=== PATIENT | male | born 1935 | race Caucasian/White ===

== ENCOUNTER 2017-05-26 19:29 | Inpatient (IN) | payer MEDICARE, MEDICAID ==
[~2017-05-26] VITALS: Ht 165.1 cm; Wt 70.3 kg
--- NOTE | 2017-05-26 19:50 | NUR ---
BRUCE FROM [facility] IN [place] FOR MEDICAL/PSYCH CLEARANCE. PER EMS PT WAS BEING AGITATED AND AT RISK FOR AWOL. PT IS AAOX3/CONFUSED. PT STATES THE YEAR IS 2016 AND OBAMA IS THE PRESIDENT. SKIN WNL. VSS. NO S/S OF ACUTE DISTRESS NOTED. PT SAFETY AND COMOFRT MEASURES IN PLACE. AWAITING MD FOR EVAL.
--- NOTE | 2017-05-26 19:56 | NUR ---
PHLEBOTOMY BEDSIDE FOR BLOOD DRAW.
--- NOTE | 2017-05-26 20:02 | NUR ---
PINKY BEDSIDE FOR PSYCH EVAL.
[2017-05-26 20:04] LABS: BASOPHILS # (AUTO) 0.1 /CMM (0.0-0.2); BASOPHILS % (AUTO) 1.1 % (0.0-2.0); EOSINOPHILS % (AUTO) 2.4 % (0.0-6.0); HEMATOCRIT 35 % (39-51); HEMOGLOBIN 11.8 g/dL (13.5-17.5); LYMPHOCYTES # (AUTO) 1.5 /CMM (0.8-4.8); LYMPHOCYTES % (AUTO) 18.3 % (20.0-44.0); MEAN CORPUSCULAR HGB CONC 34 g/dl (31.0-36.0); MEAN CORPUSCULAR VOLUME 88 fL (80-96); MONOCYTES # (AUTO) 0.5 /CMM (0.1-1.30); MONOCYTES % (AUTO) 5.6 % (2.0-12.0); NEUTROPHILS # (AUTO) 6.1 /CMM (1.8-8.9); NEUTROPHILS % (AUTO) 72.6 % (43.0-81.0); PLATELET COUNT (AUTO) 282 /CMM (150-450); RDW COEFFICIENT OF VARIATION 13.2 (11.5-15.0); RED BLOOD CELL COUNT(AUTO) 3.94 MIL/uL (4.5-6.0); WHITE BLOOD COUNT (AUTO) 8.4 K/uL (4.3-11.0)
[2017-05-26 20:19] LABS: ALANINE AMINOTRANSFERASE 26 U/L (12-78); ALCOHOL, BLOOD < 3 mg/dL (0-0); ALKALINE PHOSPHATASE 63 U/L (46-116); ASPARTATE AMINOTRANSFERASE 17 U/L (15-37); BILIRUBIN,DIRECT 0.1 mg/dL (0.0-0.2); BILIRUBIN,TOTAL 0.1 mg/dL (0.2-1.0); CALCIUM, SERUM 8.8 mg/dL (8.5-10.1); CARBON DIOXIDE 25 mmol/L (21-32); CHLORIDE 107 mmol/L (98-107); CREATININE 0.9 mg/dL (0.6-1.3); GLUCOSE 115 mg/dL (74-106); POTASSIUM 3.9 mmol/L (3.5-5.1); SALICYLATE 0.9 mg/dL (2.8-20.0); SODIUM SERUM 141 mmol/L (136-145); TOTAL PROTEIN, SERUM 6.8 g/dL (6.4-8.2); UREA NITROGEN, BLOOD 13 mg/dL (7-18)
[2017-05-26 20:20] LABS: ACETAMINOPHEN 0 ug/ml (10-30)
[2017-05-26 20:35] LABS: APPEARANCE,URINE Clear (CLEAR); BILIRUBIN,URINE Negative (NEGATIVE); BLOOD, URINE Negative Ery/uL (NEGATIVE); COLOR,URINE Yellow (YELLOW); KETONES,URINE Negative (NEGATIVE); LEUKOCYTE ESTERASE ,URINE Negative (NEGATIVE); NITRITE, URINE Negative (NEGATIVE); PROTEIN,URINE Negative (NEGATIVE); UGLUCOSE Negative (NEGATIVE); UROBILINOGEN,URINE 0.2 EU/dL (0.2)
--- NOTE | 2017-05-26 20:41 | NUR ---
CALLED NURSING SUP. FOR GPS BED
--- NOTE | 2017-05-26 20:58 | NUR ---
BRENTON BABB BEDSIDE WITH PT.
--- NOTE | 2017-05-26 21:08 | NUR ---
GAVE REPORT TO LUC FOR LIZZ.
[2017-05-26] MEDS ORDERED: LEVO25TA7 PO (21:20)
[2017-05-26] MEDS ORDERED: OLAN5TAB3 PO (21:20)
[2017-05-26] MEDS ORDERED: DIVA250T PO (21:20)
[2017-05-26] MEDS ORDERED: DOCU100C36 PO (21:20)
[2017-05-26] MEDS ORDERED: OLAN2.5T3 PO (21:20)
[2017-05-26] MEDS ORDERED: MAGN400O21 PO (21:20)
[2017-05-26] MEDS ORDERED: ACET325T53 PO (21:20)
--- NOTE | 2017-05-26 22:01 | NUR ---
MASOUD BROWN ON-CALL FOR MED RECON
--- NOTE | 2017-05-26 22:02 | NUR ---
ADMITTED FROM [facility] ER ACCOMPANIED BY MALE STAFF FROM ER VIA WHEELCHAIR. CAME TO THE UNIT AT 2200. ADMITTED ON 5150 HOLD FOR DTO AND GD. UPON FACE TO FACE, PATIENT IS AWAKE, ALERT, ORIENTED X1, CONFUSED, DISORGANIZED, AND DISORIENTED. ACCORDING TO [facility] STAFF, HE ATTEMPTED TO ELOPE, CONSTANTLY CHECKING THE EXIT DOOR WHEN REDIRECTED, BECAME COMBATIVE AND PUSHED STAFF, ANXIOUS, RESTLESS, WANDERING, NO REGARD FOR HIS SAFETY AND OTHER'S SAFETY. PLACED IN BED AWAKE, ALERT, ORIENTED X2, KNOWS HIS NAME AND TIME, HE THINKS HE LIVES IN [facility]. PATIENT IS AMBULATORY ON HIS OWN. RESPIRATION EVEN, BREATHING PATTERN NON-LABORED, NO APPARENT DISTRESS NOTED, DENIES ANY PAIN AT THIS TIME. SKIN WARM, DRY AND INTACT. BELONGINGS WERE INVENTORIED AND CHECKED FOR CONTRABAND. VALUABLES PUT TO SAFE. PATIENT IS UNDER THE PSYCHIATRIC CARE OF DR. DURAN AND UNDER THE MEDICAL CARE OF RODOLFO BABB. SKIN ASSESSMENT DONE, NO SKIN BREAKDOWN NOTED. MASOUD BROWN ON-CALL FOR MED RECONCILIATION. PATIENT REFUSED FLU AND PNEUMONIA VACCINE. NKDA. PATIENT LIVES ALONE. VITALS 98.3, 127/79, 88, 19, 96% SATURATION ON ROOM AIR. BED LOCKED AND PLACED ON LOWEST POSITION. WILL CONTINUE TO MONITOR Q 15 MINS. TO MAINTAIN SAFETY.
[2017-05-26] MEDS ORDERED: MAGNESIUM HYDROXIDE 30 ML UDC PO PRN (22:30)
[2017-05-26] MEDS ORDERED: MAG HYDROX/AL HYDROX/SIMETH 30 ML UDC PO PRN (22:30)
[2017-05-26] MEDS ORDERED: ACETAMINOPHEN 325 MG TABLET PO PRN (22:30)
--- NOTE | 2017-05-26 22:30 | NUR ---
05/26/17: At 2057, Mrsa Screen was done in er @ 2057.
--- NOTE | 2017-05-26 23:00 | NUR ---
2300: CALLED AND NOTIFIED CECY MUNGUIA ABOUT PATIENT'S ADMISSION TO THE UNIT, LEFT A MESSAGE.
[2017-05-27] MEDS ORDERED: MAGN400O6 PO (07:30)
[2017-05-27 08:18] VITALS: BP 119/65
[2017-05-27 10:44] LABS: ALANINE AMINOTRANSFERASE 30 U/L (12-78); ALKALINE PHOSPHATASE 70 U/L (46-116); ASPARTATE AMINOTRANSFERASE 18 U/L (15-37); BILIRUBIN,TOTAL 0.3 mg/dL (0.2-1.0); CALCIUM, SERUM 8.6 mg/dL (8.5-10.1); CARBON DIOXIDE 26 mmol/L (21-32); CHLORIDE 108 mmol/L (98-107); CREATININE 0.9 mg/dL (0.6-1.3); GLUCOSE 140 mg/dL (74-106); SODIUM SERUM 141 mmol/L (136-145); TOTAL PROTEIN, SERUM 6.6 g/dL (6.4-8.2); UREA NITROGEN, BLOOD 11 mg/dL (7-18)
[2017-05-27] MEDS: OLANZAPINE 2.5 MG TABLET PO SCH (10:44)
[2017-05-27 10:46] LABS: CHOLESTEROL 158 mg/dL (<200); HDL CHOLESTEROL 33 mg/dL (40-60); LDL 116 mg/dL (0-99); TRIGLYCERIDES 117 mg/dL (30-150)
--- NOTE | 2017-05-27 12:39 | NUR ---
DR. GARZA GAVE AN ORDER TO CHANGE SERVICE TO DR. PINEDA.
[2017-05-27 16:00] VITALS: BP 123/70
[2017-05-27] MEDS: LORAZEPAM 0.5 MG TABLET PO PRN (17:10)
--- NOTE | 2017-05-27 17:11 | NUR ---
RN NOTES PATIENT NOTED RESTLESS, WALKING AROUND AND TRYING TO ENTER OTHER PT'S ROOM, WAS REDIRECTED. PRN ATIVAN 0.5MG P.O. GIVEN. WILL CONTINUE TO MONITOR.
--- NOTE | 2017-05-27 19:30 | NUR ---
GPS RN NOTE, RECEIVED PATIENT AWAKE AND IN BED, NO S/S OR COMPLAINTS OF PAIN AT THIS TIME. PATIENT IS DISPLAYING NO S/S OF APPARENT DISTRESS AT THIS TIME. PATIENT BREATHING IS UNLABORED WITH EQUAL RISE AND FALL OF THE CHEST. PATIENT IS ALERT AND ORIENTED X 1 ON ROOM AIR WITH A SPO2 OF 95%. PATIENT IS COOPERATIVE WITH MEDICATION, ANXIOUS AT TIMES, CONFUSED, CALM, AND NEEDS REORIENTATION. PATIENT DENIES SUICIDE IDEATIONS AND HOMICIDAL IDEATIONS AT THIS TIME. PATIENT ASSISTED WITH TURNING AND REPOSITIONING Q2HR AND PRN FOR COMFORT AND CIRCULATION. PATIENT HAS NO NEEDS AT THIS TIME. PATIENT EDUCATED ON THE USE OF THE CALL BALDERRAMA. PATIENT SIDE RAILS ARE UP X 2, BED IS LOCKED AND LOW, AND I WILL CONTINUE TO MONITOR THIS PATIENT Q 15 MIN WITH THE HELP OF STAFF.
[2017-05-27 20:00] VITALS: BP 125/70
[2017-05-27] MEDS: DIVALPROEX SODIUM 125 MG CAP.SPRINK PO SCH (21:00)
[2017-05-27] MEDS: OLANZAPINE 5 MG TABLET PO SCH (21:40)
--- NOTE | 2017-05-27 21:40 | NUR ---
GPS RN NOTE, PATIENT REFUSED TO TAKE DEPAKOTE SPRINKLE 125 MG PO Q12HR AND ZYPREXA 5 MG PO HS. OFFERED AFOREMENTIONED MEDICATION THREE TIMES AND STILL PATIENT REFUSED STATING, " I DON'T WANT TO TAKE THAT MEDICATION I WANT TO GO HOME ". EDUCATED THE PATIENT ON THE RISKS AND BENEFITS OF TAKING AND REFUSING DEPAKOTE SPRINKLE 125 MG PO Q12HR AND ZYPREXA 5 MG PO HS. WILL CONTINUE TO MONITOR THIS PATIENT.
[2017-05-28 08:00] VITALS: BP 130/78
[2017-05-28] MEDS: OLANZAPINE 2.5 MG TABLET PO SCH (08:05)
[2017-05-28] MEDS: LEVOTHYROXINE SODIUM 25 MCG TABLET PO SCH (08:05)
[2017-05-28] MEDS: DIVALPROEX SODIUM 125 MG CAP.SPRINK PO SCH ×2 (08:05→21:45)
[2017-05-28] MEDS: DOCUSATE SODIUM 100 MG CAPSULE PO SCH (08:06)
--- NOTE | 2017-05-28 13:40 | NUR ---
Discharge Planning: MARQUITA spoke to Jacqueline Thomas, , pts Conservator for discharge planning purposes. MARQUITA asked for consent for treatment and conservatorship paperwork to be faxed to [facility]; which she agreed to fax. SW gathered additional information regarding pts conservator (i.e. pt has been conserved since 2016 however managed to stay in his home of 40 yrs). Per June, pt was wandering away from home to be redirected by neighbors frequently, causing safety concerns and pt to be removed from his home, on 2017. Pt was then placed at [facility] from the [facility]. MARQUITA notified June that pt would not be accepted back at [facility] due to safety concerns, per Geovanna from admissions. MARQUITA was also informed that [place] assigned to pts case was [facility], [phone]. MARQUITA will follow up by faxing inquiries to SNF.
--- NOTE | 2017-05-28 15:30 | NUR ---
Initial Discharge Plan: Pt resides at the [facility], [address] [facility] [address] and his contact # is . Pts Conservator is Jacqueline Thomas, . Per reports from [facility] staff, pt is unmanageable and not appropriate for their facility. MARQUITA will work with [facility] to find appropriate placement that addresses his needs. MARQUITA will work to safely discharge pt.
[2017-05-28 16:00] VITALS: BP 126/65
[2017-05-28] MEDS: LORAZEPAM 0.5 MG TABLET PO PRN (16:51)
--- NOTE | 2017-05-28 16:54 | NUR ---
Pt. is anxious and irritable, wanders to different rooms and awol risk, ativan of 0.5 mg po given as ordered. Will continue to monitor for safety.
[2017-05-28 20:00] VITALS: BP 105/77
[2017-05-28] MEDS: OLANZAPINE 5 MG TABLET PO SCH (21:46)
[2017-05-29] MEDS: LEVOTHYROXINE SODIUM 25 MCG TABLET PO SCH (07:49)
[2017-05-29] MEDS: DOCUSATE SODIUM 100 MG CAPSULE PO SCH (08:25)
[2017-05-29] MEDS: OLANZAPINE 2.5 MG TABLET PO SCH ×3 (08:25→17:01)
[2017-05-29] MEDS: DIVALPROEX SODIUM 125 MG CAP.SPRINK PO SCH ×3 (08:25→17:01)
[2017-05-29] MEDS: LORAZEPAM 0.5 MG TABLET PO PRN (13:51)
[2017-05-29 16:00] VITALS: BP 126/65
[2017-05-29 20:00] VITALS: BP 122/70
[2017-05-29] MEDS: TEMAZEPAM 7.5 MG CAPSULE PO PRN (23:16)
--- NOTE | 2017-05-30 04:00 | NUR ---
GPS RN NOTE: PATIENT NOTED TO BE CONFUSED, AGGRESSIVE, ANXIOUS AND IRRITABLE. MANAGED BY REDIRECTION AND LIMIT SETTING. PATIENT WENT BACK TO SLEEP. WILL CONTINUE TO MONITOR [id number] FOR SAFETY
[2017-05-30 08:00] VITALS: BP 140/90
[2017-05-30] MEDS: DOCUSATE SODIUM 100 MG CAPSULE PO SCH (08:53)
[2017-05-30] MEDS: LORAZEPAM 0.5 MG TABLET PO PRN ×2 (08:53→17:17)
[2017-05-30] MEDS: LEVOTHYROXINE SODIUM 25 MCG TABLET PO SCH (08:53)
[2017-05-30] MEDS: DIVALPROEX SODIUM 125 MG CAP.SPRINK PO SCH ×4 (08:53→20:40)
[2017-05-30] MEDS: OLANZAPINE 2.5 MG TABLET PO SCH ×4 (08:53→20:40)
--- NOTE | 2017-05-30 09:00 | NUR ---
RN NOTES PATIENT RESTLESS, WALKING AROUND ANXIOUS. PRN ATIVAN 0.5MG P.O. GIVEN. WILL CONTINUE TO MONITORING
[2017-05-30 20:33] VITALS: BP 138/76
[2017-05-30] MEDS: TEMAZEPAM 7.5 MG CAPSULE PO PRN (21:42)
[2017-05-31 08:00] VITALS: BP 113/72
[2017-05-31] MEDS: LEVOTHYROXINE SODIUM 25 MCG TABLET PO SCH (08:39)
[2017-05-31] MEDS: OLANZAPINE 2.5 MG TABLET PO SCH ×4 (08:39→21:32)
[2017-05-31] MEDS: DIVALPROEX SODIUM 125 MG CAP.SPRINK PO SCH ×3 (08:39→17:02)
[2017-05-31] MEDS: DOCUSATE SODIUM 100 MG CAPSULE PO SCH (08:40)
--- NOTE | 2017-05-31 14:10 | NUR ---
Discharge Planning: SW faxed inquiries (face sheet, H&P, P&P, and medication list) to [facility], and fax # and [facility], [phone] and fax # . SW will follow up with facilities to ensure pt is safely and adequately placed.
[2017-05-31 16:00] VITALS: BP 137/78
--- NOTE | 2017-05-31 16:00 | NUR ---
[id number]: DR. PINEDA IS AWARE FOR VALPROIC LEVEL IS 39 AND DID MEDICATIONS ADJUSTMENT OF DEPAKOTE .
[2017-05-31] MEDS: GABAPENTIN 100 MG CAPSULE PO SCH (17:02)
[2017-05-31 20:46] VITALS: BP 127/87
[2017-05-31] MEDS: DIVALPROEX SODIUM 500 MG TABLET.DR PO SCH (21:32)
[2017-06-01 08:00] VITALS: BP 115/79
[2017-06-01] MEDS: DIVALPROEX SODIUM 125 MG CAP.SPRINK PO SCH ×3 (08:25→17:18)
[2017-06-01] MEDS: OLANZAPINE 2.5 MG TABLET PO SCH ×4 (08:25→21:31)
[2017-06-01] MEDS: DOCUSATE SODIUM 100 MG CAPSULE PO SCH (08:25)
[2017-06-01] MEDS: GABAPENTIN 100 MG CAPSULE PO SCH ×3 (08:26→17:18)
[2017-06-01] MEDS: LEVOTHYROXINE SODIUM 25 MCG TABLET PO SCH (08:26)
[2017-06-01] MEDS ORDERED: DIVALPROEX SODIUM 125 MG CAP.SPRINK PO ONE (15:30)
[2017-06-01] MEDS ORDERED: OLANZAPINE 2.5 MG TABLET PO ONE (15:30)
[2017-06-01] MEDS ORDERED: GABAPENTIN 100 MG CAPSULE PO ONE (15:30)
--- NOTE | 2017-06-01 15:49 | NUR ---
Discharge Planning: MARQUITA received a call back from Abdias from [facility] informing that pt was declined acceptance at their facility stating, "we don't have availability for him right now." MARQUITA will follow up with other facilities to ensure pt is safely and adequately placed.
[2017-06-01] MEDS: LORAZEPAM 0.5 MG TABLET PO PRN (16:19)
--- NOTE | 2017-06-01 16:19 | NUR ---
[id number]: GAVE ATIVAN 0.5 MG PO DUE TO SEVERE ANXIETY UPON PT REQUEST AND WILL CONTINUE TO MONITOR FOR EFFECTIVENESS OF MEDICATION
[2017-06-01 16:25] VITALS: BP 133/78
--- NOTE | 2017-06-01 19:35 | NUR ---
GPS/RN OPENING NOTES PATIENT IN BED, RESPIRATIONS EVEN AND UNLABORED, SKIN WARM TO TOUCH, BED IN LOCK POSITION, ENDORSEMENT RECEIVED FROM AM RN . SITTER AT BEDSIDE, WILL MONITOR FOR ANY CHANGES.
[2017-06-01 20:00] VITALS: BP 118/61
[2017-06-01] MEDS: DIVALPROEX SODIUM 500 MG TABLET.DR PO SCH (21:31)
[2017-06-02] MEDS: LORAZEPAM 0.5 MG TABLET PO PRN (04:32)
--- NOTE | 2017-06-02 04:36 | NUR ---
GPS/RN NOTES ATIVAN 0.5MG GIVEN, PATIENT INABILITY TO RELAX, ABLE TO SWALLOW WITH APPLE SAUCE, WILL MONITOR EFFECTIVENESS
--- NOTE | 2017-06-02 06:05 | NUR ---
220-B PATIETN SLEPT DURING THE FIRST FEW HOURS OF SHIFT AND AWAKEN GEOLOGY TEACHER, FREQUENT REORIENTATION, SAFETY MEASURES PROVIDE, OFFERED/PROVIDED SNACKS, BED IN LOCKED POSITION, MONITORING FOR ANY CHANGES, WILL ENDORSE TO AM RN FOR LIZZ.
[2017-06-02] MEDS: LEVOTHYROXINE SODIUM 25 MCG TABLET PO SCH (07:30)
[2017-06-02 08:00] VITALS: BP 150/90
[2017-06-02] MEDS: DOCUSATE SODIUM 100 MG CAPSULE PO SCH (08:48)
[2017-06-02] MEDS: DIVALPROEX SODIUM 125 MG CAP.SPRINK PO SCH ×3 (08:48→17:00)
[2017-06-02] MEDS: GABAPENTIN 100 MG CAPSULE PO SCH (08:48)
[2017-06-02] MEDS: OLANZAPINE 2.5 MG TABLET PO SCH ×4 (08:48→20:06)
[2017-06-02] MEDS: GABAPENTIN 300 MG CAPSULE PO SCH ×2 (12:20→17:00)
--- NOTE | 2017-06-02 15:51 | NUR ---
Discharge Planning; MARQUITA followed up with Rich from [facility] inquiring about faxed inquiry regarding pts placement. Per Rich, inquiry was not received. MARQUITA will re fax inquiry on this date.
--- NOTE | 2017-06-02 15:54 | NUR ---
Discharge Planning: MARQUITA received a message from Rich from [facility] informing that inquiry was received and pending review from the Ms. Calero from admissions. MARQUITA will follow up tomorrow.
[2017-06-02 16:00] VITALS: BP 122/65
[2017-06-02 20:08] VITALS: BP 129/72
[2017-06-02] MEDS: DIVALPROEX SODIUM 500 MG TABLET.DR PO SCH (21:02)
[2017-06-02] MEDS: TEMAZEPAM 7.5 MG CAPSULE PO PRN (23:59)
--- NOTE | 2017-06-03 | NUR ---
PATIENT NOT SLEEPING, TEMAZEPAM 7.5 MG CAP 1 PO GIVEN
[2017-06-03 08:00] VITALS: BP 150/84
[2017-06-03] MEDS: LEVOTHYROXINE SODIUM 25 MCG TABLET PO SCH (08:58)
[2017-06-03] MEDS: DIVALPROEX SODIUM 125 MG CAP.SPRINK PO SCH ×3 (08:59→17:34)
[2017-06-03] MEDS: GABAPENTIN 300 MG CAPSULE PO SCH ×3 (08:59→17:34)
[2017-06-03] MEDS: DOCUSATE SODIUM 100 MG CAPSULE PO SCH (08:59)
[2017-06-03] MEDS: OLANZAPINE 2.5 MG TABLET PO SCH ×4 (09:01→21:00)
--- NOTE | 2017-06-03 10:39 | NUR ---
Discharge Planning: MARQUITA received a call from Rich from [facility], informing that they could not accept pt due to "DON is on vacation so we are careful with admitting pts with behavioral issues." MARQUITA will follow up with other facilities to ensure pt is safely and properly placed.
[2017-06-03 16:00] VITALS: BP 141/76
[2017-06-03 20:00] VITALS: BP 133/75
--- NOTE | 2017-06-03 20:56 | NUR ---
UNABLE TO GIVE MEDICINE AT THIS TIME, PT IS DOSING OFF. WILL ADMINISTER LATER.
--- NOTE | 2017-06-03 21:56 | NUR ---
PT STILL SLEEPING UNABLE TO GIVE MEDICATIONS
[2017-06-03] MEDS: DIVALPROEX SODIUM 500 MG TABLET.DR PO SCH (22:00)
--- NOTE | 2017-06-03 22:51 | NUR ---
ZYPREXA 2.5MG TAB PO NOT GIVEN, PT LETHARGIC, NOT ABLE TO FOLLOW DIRECTIONS AT THIS TIME
--- NOTE | 2017-06-03 22:53 | NUR ---
DEPAKOTE 500MG NOT GIVEN, PT LETHARGIC, NOT ABLE TO FOLLOW COMMANDS
[2017-06-04 08:00] VITALS: BP 133/71
[2017-06-04] MEDS: DOCUSATE SODIUM 100 MG CAPSULE PO SCH (08:08)
[2017-06-04] MEDS: OLANZAPINE 2.5 MG TABLET PO SCH ×4 (08:09→21:37)
[2017-06-04] MEDS: DIVALPROEX SODIUM 125 MG CAP.SPRINK PO SCH ×3 (08:09→16:57)
[2017-06-04] MEDS: LEVOTHYROXINE SODIUM 25 MCG TABLET PO SCH (08:09)
[2017-06-04] MEDS: GABAPENTIN 300 MG CAPSULE PO SCH (08:09)
--- NOTE | 2017-06-04 10:57 | NUR ---
Discharge Plannig: MARQUITA faxed inquiries (face sheet, P&P, H&P, and med list) to the following facilities locked: [facility], [address] [place] [address], and fax # ; [facility], [address] [place] [address] and fax # and fax # ; [facility], and fax # and [facility], [facility] [address] [address], and fax # (information was obtained by [employer]). MARQUITA will follow up with facilities. In addition, MARQUITA contacted pts Conservator Jacqueline Thomas, , to provide her with an update. MARQUITA asked again for Conservatorship paperwork to be faxed to . Per June she believed she had faxed it already. MARQUITA will follow up to ensure pt is safely and adequately discharged.
--- NOTE | 2017-06-04 11:36 | NUR ---
SW received pts Conservatorship paperwork from Jacqueline William, on this date. Paperwork was placed in pts chart.
[2017-06-04 16:00] VITALS: BP 118/78
[2017-06-04] MEDS: GABAPENTIN 100 MG CAPSULE PO SCH (16:57)
--- NOTE | 2017-06-04 19:30 | NUR ---
GPS RN NOTE, RECEIVED PATIENT AWAKE AND IN BED, NO S/S OR COMPLAINTS OF PAIN AT THIS TIME. PATIENT IS DISPLAYING NO S/S OF APPARENT DISTRESS AT THIS TIME. PATIENT BREATHING IS UNLABORED WITH EQUAL RISE AND FALL OF THE CHEST. PATIENT IS ALERT AND ORIENTED X 1 ON ROOM AIR WITH A SPO2 OF 95%. PATIENT IS COOPERATIVE WITH MEDICATION, ANXIOUS AT TIMES, CONFUSED, DISORGANIZED, UNCOOPERATIVE, AND NEEDS REORIENTATION. PATIENT DENIES SUICIDE IDEATIONS AND HOMICIDAL IDEATIONS AT THIS TIME. PATIENT ASSISTED WITH TURNING AND REPOSITIONING Q2HR AND PRN FOR COMFORT AND CIRCULATION. PATIENT HAS NO NEEDS AT THIS TIME. PATIENT EDUCATED ON THE USE OF THE CALL BALDERRAMA. PATIENT SIDE RAILS ARE UP X 2, BED IS LOCKED AND LOW, AND I WILL CONTINUE TO MONITOR THIS PATIENT Q 15 MIN WITH THE HELP OF STAFF.
[2017-06-04 20:00] VITALS: BP 135/79
[2017-06-04] MEDS: DIVALPROEX SODIUM 500 MG TABLET.DR PO SCH (21:37)
[2017-06-05 08:00] VITALS: BP 146/75
[2017-06-05] MEDS: LEVOTHYROXINE SODIUM 25 MCG TABLET PO SCH (09:53)
[2017-06-05] MEDS: GABAPENTIN 100 MG CAPSULE PO SCH ×4 (09:53→21:00)
[2017-06-05] MEDS: OLANZAPINE 2.5 MG TABLET PO SCH ×4 (09:54→21:00)
[2017-06-05] MEDS: DIVALPROEX SODIUM 125 MG CAP.SPRINK PO SCH ×3 (09:54→17:00)
[2017-06-05] MEDS: DOCUSATE SODIUM 100 MG CAPSULE PO SCH (09:54)
[2017-06-05] MEDS: LORAZEPAM 0.5 MG TABLET PO PRN (11:05)
--- NOTE | 2017-06-05 11:05 | NUR ---
RN NOTES ADMINISTERED ATIVAN 0.5 MG PO PRN FOR ANXIETY, IRRITABLE, PARANOIA. V/S TAKEN SALABLE BP- 146/75, P-99, CONTINUED MONITORING.
[2017-06-05 15:54] VITALS: BP 139/80
--- NOTE | 2017-06-05 18:34 | NUR ---
RN NOTES PATIENT SLEEPING AT THIS TIME, UNABLE TO ADMINISTERED SCHEDULED MEDICATION, V/S TAKEN STABLE, NEEDS ATTENDED AND ANTICIPATED, NO ACUTE RESPIRATORY DISTRESS, CONTINUED MONITORING.
[2017-06-05 20:00] VITALS: BP 132/73
--- NOTE | 2017-06-05 21:00 | NUR ---
GPS RN NOTE: UNABLE TO GIVE PM MEDICATION, PATIENT ASLEEP, LETHARGIC AND UNABLE TO FOLLOW DIRECTION. V/S DH=914/78 P=73 WILL TRY AGAIN LATER.
[2017-06-05] MEDS: DIVALPROEX SODIUM 500 MG TABLET.DR PO SCH (22:00)
--- NOTE | 2017-06-05 22:00 | NUR ---
GPS RN NOTE: UNABLE TO GIVE PM MEDS, PATIENT STILL ASLEEP, LETHARGIC AND UNABLE TO FOLLOW DIRECTION, V/S BP 128/75 P=88 R=20 WILL CONTINUE TO MONITOR [id number] FOR SAFETY
--- NOTE | 2017-06-05 23:00 | NUR ---
GPS RN NOTE: PATIENT STILL ASLEEP, LETHARGIC, ARAUSABLE BUT UNABLE TO FOLLOW COMMANDS. PM MEDS NOT GIVEN. V/S WNL. WILL CONTINUE TO MONITOR
--- NOTE | 2017-06-06 06:08 | NUR ---
GPS RN NOTE: PATIENT NOTED WITH PRODUCTIVE COUGH, NO SOB, NO ACUTE DISTRESS, BREATHING EVEN AND UNLABORED, V/S 128/73 P=72 R=20 =98.3F. NOTIFIED DR. GARRETT NARVAEZ FOR MEDS AND TEST ORDER. RECEIVED AN ORDER OF ROBITUSSIN 5ML PO Q4 HOURS PRN NOTED AND CARRIED OUT. WILL CONTINUE TO MONITOR L12RSES FOR SAFETY
[2017-06-06] MEDS ORDERED: GUAIFENESIN/D-METHORPHAN HB 5 ML UDC PO PRN (06:30)
[2017-06-06] MEDS: LEVOTHYROXINE SODIUM 25 MCG TABLET PO SCH (07:30)
[2017-06-06] MEDS: GABAPENTIN 100 MG CAPSULE PO SCH (08:00)
[2017-06-06] MEDS: OLANZAPINE 2.5 MG TABLET PO SCH ×5 (08:00→21:11)
[2017-06-06] MEDS: DIVALPROEX SODIUM 125 MG CAP.SPRINK PO SCH ×3 (08:00→16:09)
[2017-06-06 08:20] VITALS: BP 142/56
[2017-06-06] MEDS: DOCUSATE SODIUM 100 MG CAPSULE PO SCH (09:00)
--- NOTE | 2017-06-06 13:34 | NUR ---
GPS RN NOTE: PT WAS SEEN AND EXAMINE BY DR PINEDA, NOTIFIED PT SLEEPING MOST OF THE DAY , REFUSED TO TAKE MORNING MEDICATION.
[2017-06-06 14:57] LABS: BASOPHILS % (AUTO) 0.1 % (0.0-2.0); EOSINOPHILS % (AUTO) 0.2 % (0.0-6.0); HEMATOCRIT 34 % (39-51); HEMOGLOBIN 11.3 g/dL (13.5-17.5); LYMPHOCYTES # (AUTO) 0.9 /CMM (0.8-4.8); LYMPHOCYTES % (AUTO) 7.8 % (20.0-44.0); MEAN CORPUSCULAR HGB CONC 33 g/dl (31.0-36.0); MEAN CORPUSCULAR VOLUME 89 fL (80-96); MONOCYTES # (AUTO) 1.3 /CMM (0.1-1.30); MONOCYTES % (AUTO) 11.1 % (2.0-12.0); NEUTROPHILS # (AUTO) 9.6 /CMM (1.8-8.9); NEUTROPHILS % (AUTO) 80.8 % (43.0-81.0); PLATELET COUNT (AUTO) 195 /CMM (150-450); RDW COEFFICIENT OF VARIATION 14.4 (11.5-15.0); RED BLOOD CELL COUNT(AUTO) 3.81 MIL/uL (4.5-6.0); WHITE BLOOD COUNT (AUTO) 11.9 K/uL (4.3-11.0)
[2017-06-06 15:14] LABS: ALANINE AMINOTRANSFERASE 24 U/L (12-78); ALBUMIN 2.6 g/dL (3.4-5.0); ALKALINE PHOSPHATASE 64 U/L (46-116); ASPARTATE AMINOTRANSFERASE 19 U/L (15-37); BILIRUBIN,TOTAL 0.3 mg/dL (0.2-1.0); CALCIUM, SERUM 8.5 mg/dL (8.5-10.1); CARBON DIOXIDE 31 mmol/L (21-32); CHLORIDE 106 mmol/L (98-107); CREATININE 1.1 mg/dL (0.6-1.3); GLUCOSE 124 mg/dL (74-106); MAGNESIUM 2.3 mg/dL (1.8-2.4); POTASSIUM 3.9 mmol/L (3.5-5.1); SODIUM SERUM 142 mmol/L (136-145); TOTAL PROTEIN, SERUM 6.7 g/dL (6.4-8.2); UREA NITROGEN, BLOOD 23 mg/dL (7-18)
[2017-06-06 16:00] VITALS: BP 114/80
--- NOTE | 2017-06-06 16:29 | NUR ---
GPS RN NOTE: DR REYNA WAS NOTIFIED PT TODAY LABS WBC 11.9,RBC8.81,BUN 23,ALBUMIN 2.6, PT HAS ON AND OFF COUGH ,VS BP 114/86 P 104,O2 99, T 98.3. NEW DR Kang ORDER CHEST XRAY ,ORDER PLACED AND CARED OUT.
[2017-06-06] MEDS ORDERED: GABAPENTIN 100 MG CAPSULE PO SCH (17:00)
[2017-06-06 20:24] VITALS: BP 155/84
--- NOTE | 2017-06-06 21:16 | NUR ---
RN GPS NOTES PT. REFUSED NIGHT MEDS DEPAKOTE 250 MG, OLANZAPINE 2.5 MG , P T. SLEEPING AT THIS TIME , NO ACUTE DISTRESS NOTED
[2017-06-06] MEDS ORDERED: DIVALPROEX SODIUM 500 MG TABLET.DR PO SCH (22:00)
[2017-06-07] MEDS ORDERED: OLANZAPINE 2.5 MG TABLET PO PRN (00:30)
--- NOTE | 2017-06-07 00:45 | NUR ---
GPS RN NOTE, PATIENT HAD A CHEST X-RAY TAKEN RESULTS ARE FOLLOWS, POSSIBLE LEFT BASILAR PNEUMONIA AND CARDIOMEGALY WITH POSSIBLE BORDERLINE CONGESTIVE FAILURE. PAGED [facility] [place] AND INFORMED DR NARVAEZ OF MY FINDINGS. DR NARVAEZ GAVE ORDER TO TRANSFER PATIENT TO [facility] AND SAID HE WOULD DO ADMISSION ORDERS ONCE THE PATIENT IS ON THE FLOOR. PAGED DR PINEDA AND INFORMED HER OF MY FINDINGS. DR PINEDA ORDERED STOP GABAPENTIN 100 MG PO DAILY, TO CHANGE DEPAKOTE TO 250MG PO BID, AND TO CHANGE ZYPREXA TO 2.5MG PO Q6HR PRN. DR PINEDA ALSO ORDERED TO DISCONTINUE 5250 HOLD. ALL ORDERS NOTED AND CARRIED OUT WILL CONTINUE TO MONITOR THIS PATIENT.
--- NOTE | 2017-06-07 01:18 | NUR ---
DISCHARGE NOTES PATIENT DISCHARGING TO IN ROOM 310 -1 DUE TO PNEUMONIA PER MD ORDES , PT. DISCHARGING WITH ALL BELONGINGS , PT. IS STABLE FOR DISCHARGE ,REPORT GIVEN TO HUGO LAMB .
[2017-06-07] MEDS ORDERED: DIVALPROEX SODIUM 250 MG TABLET.DR PO SCH (09:00)
[2017-06-10] MEDS ORDERED: OLAN2.5T3 PO (14:41)
[2017-06-10] MEDS ORDERED: DIVA250T4 PO (14:41)
[2017-06-10] MEDS ORDERED: LEVO500T2 PO (14:41)
== END 2017-06-07 01:20 | disposition short-term general hospital (02) | DRG 885 ==
LOC: ER 19:38 → GPS 21:43
PROVIDERS: ADMIT Psychiatry & Neurology Psychosomatic Medicine; ATTEND Psychiatry & Neurology Psychosomatic Medicine
DX: F25.0 Schizoaffective disorder, bipolar type (principal); Z93.6 Other artificial openings of urinary tract status; F03.91 Unspecified dementia, unspecified severity, with behavioral disturbance; R56.9 Unspecified convulsions; E44.1 Mild protein-calorie malnutrition; F39 Unspecified mood [affective] disorder; F29 Unspecified psychosis not due to a substance or known physiological condition; F03.90 Unspecified dementia, unspecified severity, without behavioral disturbance, psychotic disturbance, mood disturbance, and anxiety; D64.9 Anemia, unspecified; Z79.899 Other long term (current) drug therapy; Z73.6 Limitation of activities due to disability; E03.9 Hypothyroidism, unspecified; R26.9 Unspecified abnormalities of gait and mobility; F31.9 Bipolar disorder, unspecified
CPT/HCPCS: 36415; 71045-TC; 80048-TC; 80053-TC; 80061-TC; 80076-TC; 80164-TC; 80305; 81000-TC; 83735-TC; 85025-TC; 87081-TC; A4606; G0480; Z7610

== ENCOUNTER 2017-06-07 01:38 | Inpatient (IN) | payer MEDICARE, MEDICAID ==
[~2017-06-07] VITALS: Ht 162.6 cm; Wt 72.1 kg
[~2017-06-07 01:38] MED LIST: ACET325T53 PO; DOCU100C36 PO; LEVO25TA7 PO; MAGN400O6 PO
[2017-06-07 01:40] VITALS: BP 132/70
--- NOTE | 2017-06-07 01:40 | NUR ---
RN NOTES: RECEIVED PT AND IS ON ROOM AIR. PT A/OX1. NO IV NOTED AT THIS TIME. RECEIVED PT FROM GPS. CALL LIGHT WITHIN PT'S REACH. BED KEPT IN LOW, LOCKED POSITION, AND SIDE RAILS X 2UP. WILL CONTINUE TO MONITOR PT.
--- NOTE | 2017-06-07 02:12 | NUR ---
RN NOTES: DR. NARVAEZ AWARE PT IS HERE ON THE FLOOR. AWAITING FOR ADMITTING ORDERS.
[2017-06-07] MEDS ORDERED: POTASSIUM CHLORIDE 20 MEQ TAB.PRT.SR PO ONE ×2 (02:30→05:00)
[2017-06-07] MEDS ORDERED: FUROSEMIDE 100 MG/10 ML VIAL IV ONE (02:30)
[2017-06-07] MEDS ORDERED: Z GUARD REMEDY 2 OZ OINT TP PRN (02:30)
[2017-06-07] MEDS ORDERED: MAG HYDROX/AL HYDROX/SIMETH 30 ML UDC PO PRN (02:30)
[2017-06-07] MEDS ORDERED: MAGNESIUM HYDROXIDE 30 ML UDC PO PRN (02:30)
[2017-06-07] MEDS ORDERED: ONDANSETRON HCL/PF 4 MG/2 ML VIAL IVP PRN (02:30)
[2017-06-07] MEDS: ENOXAPARIN SODIUM 40 MG/0.4 ML DISP.SYRIN SQ SCH (02:51)
[2017-06-07 03:48] LABS: BASOPHILS % (AUTO) 0.1 % (0.0-2.0); EOSINOPHILS % (AUTO) 0.2 % (0.0-6.0); HEMATOCRIT 33 % (39-51); HEMOGLOBIN 10.9 g/dL (13.5-17.5); LYMPHOCYTES # (AUTO) 0.9 /CMM (0.8-4.8); LYMPHOCYTES % (AUTO) 7.6 % (20.0-44.0); MEAN CORPUSCULAR HGB CONC 33 g/dl (31.0-36.0); MEAN CORPUSCULAR VOLUME 90 fL (80-96); MONOCYTES # (AUTO) 1.2 /CMM (0.1-1.30); MONOCYTES % (AUTO) 10.1 % (2.0-12.0); NEUTROPHILS # (AUTO) 9.7 /CMM (1.8-8.9); PLATELET COUNT (AUTO) 199 /CMM (150-450); RDW COEFFICIENT OF VARIATION 14.8 (11.5-15.0); RED BLOOD CELL COUNT(AUTO) 3.66 MIL/uL (4.5-6.0); WHITE BLOOD COUNT (AUTO) 11.8 K/uL (4.3-11.0)
[2017-06-07 04:00] VITALS: BP 137/77
[2017-06-07 04:12] LABS: B-TYPE NATRIURETIC PEPTIDE 226 PG/ML (0-125); CALCIUM, SERUM 8.5 mg/dL (8.5-10.1); CARBON DIOXIDE 28 mmol/L (21-32); CHLORIDE 107 mmol/L (98-107); GLUCOSE 152 mg/dL (74-106); MAGNESIUM 2.2 mg/dL (1.8-2.4); PHOSPHORUS 3.1 mg/dL (2.5-4.9); POTASSIUM 3.2 mmol/L (3.5-5.1); SODIUM SERUM 144 mmol/L (136-145); UREA NITROGEN, BLOOD 23 mg/dL (7-18)
--- NOTE | 2017-06-07 04:39 | NUR ---
RN NOTES: INFORMED DR NARVAEZ ABOUT PT ATTEMPTING TO GET OUT OF BED. GOT ORDER FOR SITTER.
--- NOTE | 2017-06-07 04:41 | NUR ---
RN NOTES: INFORMED BRICE ABOUT K 3.2 ; GOT ORDER FOR K DUR 40MEQ PO .
--- NOTE | 2017-06-07 07:10 | NUR ---
telegraphic typewriter mechanic initial notes Received patient in bed, asleep, head of bed elevated, no SOB or distress noted. Alert and oriented x 1-2, confused. On tele monitor SR heart rate of 87, no facial grimace noted. Sitter at bedside for constant monitoring. IV intact and patent HL only. Call light with in patient reach, will continue to monitor accordingly.
--- NOTE | 2017-06-07 07:25 | NUR ---
SILL WORKER CLOSING NOTES: ALL NEEDS WERE ATTENDED AND ANTICIPATED FOR. CALLED [facility] AND SAID THEY WILL DELIVER SCD PUMPS. PT ON ROOM AIR. PT ON TELE BOX AND MONITOR SHOWS ST 103. PT HAS L HAND #22G AND IS PATENT AND INTACT. CURRENTLY S/L. CALL LIGHT WITHIN PT'S REACH. SITTER AT BEDSIDE. BED KEPT IN LOW, LOCKED POSITION, AND SIDE RAILS X 2UP. ENDORSED TO AM NURSE FOR LIZZ.
[2017-06-07 08:00] VITALS: BP_SYST 114; BP_SYST 129; BP_DIAS 67; BP_DIAS 76
[2017-06-07] MEDS: LEVOTHYROXINE SODIUM 25 MCG TABLET PO SCH (08:24)
--- NOTE | 2017-06-07 09:49 | NUR ---
telecommunications repairer notes Dr. layton on site and informed about VTE score of >5 and ordered lovenox 40mg SQ daily. All orders carried out and noted.
[2017-06-07] MEDS ORDERED: ENOXAPARIN SODIUM 40 MG/0.4 ML DISP.SYRIN SQ SCH (10:00)
[2017-06-07 16:00] VITALS: BP 120/74
[2017-06-07] MEDS: LEVOFLOXACIN 500 MG /D5W 100ML 500 MG in PREMIX 1 EA IV SCH (16:50)
--- NOTE | 2017-06-07 19:14 | NUR ---
ms rn closing notes All needs provided, attended, and anticipated. Patient in stable condition at this time. Call light with in patient reach, endorsed to next shift RN to continue care.
[2017-06-07 20:00] VITALS: BP 106/56
--- NOTE | 2017-06-07 21:19 | NUR ---
RN NOTES Patient restless, trying to get out of bed, pulled out his IV line. Called and spoke to Dr Blackmon and ordered Haldol IM x1. Noted and carried out.
[2017-06-07] MEDS ORDERED: HALOPERIDOL LACTATE INJ 5 MG/ML VIAL IM ONE (21:30)
[2017-06-07] MEDS ORDERED: OLANZAPINE 2.5 MG TABLET PO PRN (22:00)
--- NOTE | 2017-06-08 01:10 | NUR ---
RN NOTES Patient sleeping comfortably. No apparent distress noted.Endorsed continuity of care to RN Doris.
--- NOTE | 2017-06-08 01:13 | NUR ---
MS RN NOTES: RECEIVED PT ON ROOM AIR AND IS AWAKE AT THIS TIME. PT A/OX1 AND APPEARS TO BE RESTLESS. SITTER AT BEDSIDE. PT HAS NO IV NOTED AT THIS TIME. CALL LIGHT WITHIN PT'S REACH. BED KEPT IN LOW, LOCKED POSITION, AND SIDE RAILS X 2UP. WILL CONTINUE TO MONITOR PT.
[2017-06-08] MEDS: ENOXAPARIN SODIUM 40 MG/0.4 ML DISP.SYRIN SQ SCH ×2 (01:41→21:40)
--- NOTE | 2017-06-08 06:28 | NUR ---
MS RN CLOSING NOTES: ALL NEEDS WERE ATTENDED AND ANTICIPATED FOR. PT ON ROOM AIR AND TOLERATING WELL. PT ASLEEP AT THIS TIME. SITTER AT BEDSIDE. PT HAS IV ON L WRIST #22G AND IS PATENT AND INTACT. CURRENTLY S/L. CALL LIGHT WITHIN PT'S REACH. BED ALARM ACTIVATED. BED KEPT IN LOW, LOCKED POSITION, AND SIDE RAILS X 2UP. WILL ENDORSE TO AM NURSE FOR LIZZ.
[2017-06-08 06:43] LABS: BASOPHILS % (AUTO) 0.3 % (0.0-2.0); EOSINOPHILS % (AUTO) 2.8 % (0.0-6.0); HEMATOCRIT 35 % (39-51); HEMOGLOBIN 11.4 g/dL (13.5-17.5); LYMPHOCYTES # (AUTO) 1.3 /CMM (0.8-4.8); LYMPHOCYTES % (AUTO) 13.6 % (20.0-44.0); MEAN CORPUSCULAR HGB CONC 33 g/dl (31.0-36.0); MEAN CORPUSCULAR VOLUME 90 fL (80-96); MONOCYTES % (AUTO) 10.6 % (2.0-12.0); NEUTROPHILS # (AUTO) 7.2 /CMM (1.8-8.9); NEUTROPHILS % (AUTO) 72.7 % (43.0-81.0); PLATELET COUNT (AUTO) 223 /CMM (150-450); RDW COEFFICIENT OF VARIATION 14.3 (11.5-15.0); RED BLOOD CELL COUNT(AUTO) 3.83 MIL/uL (4.5-6.0); WHITE BLOOD COUNT (AUTO) 9.9 K/uL (4.3-11.0)
[2017-06-08 06:50] LABS: IRON, SERUM 20 ug/dl (50-175); TOTAL IRON BINDING CAPACITY 186 ug/dl (250-450)
[2017-06-08 07:09] LABS: ALANINE AMINOTRANSFERASE 38 U/L (12-78); ALBUMIN 2.4 g/dL (3.4-5.0); ALKALINE PHOSPHATASE 66 U/L (46-116); ASPARTATE AMINOTRANSFERASE 32 U/L (15-37); BILIRUBIN,TOTAL 0.4 mg/dL (0.2-1.0); CALCIUM, SERUM 8.7 mg/dL (8.5-10.1); CARBON DIOXIDE 29 mmol/L (21-32); CHLORIDE 105 mmol/L (98-107); CREATININE 0.9 mg/dL (0.6-1.3); GLUCOSE 105 mg/dL (74-106); MAGNESIUM 2.3 mg/dL (1.8-2.4); PHOSPHORUS 3.3 mg/dL (2.5-4.9); POTASSIUM 3.5 mmol/L (3.5-5.1); SODIUM SERUM 143 mmol/L (136-145); TOTAL PROTEIN, SERUM 6.9 g/dL (6.4-8.2); UREA NITROGEN, BLOOD 27 mg/dL (7-18)
--- NOTE | 2017-06-08 07:15 | NUR ---
ms rn initial notes Received patient in bed, asleep, head of bed elevated, no SOB or distress noted. Alert and oriented x 1-2, confused. no facial grimace noted. Sitter at bedside for constant monitoring. IV intact and patent HL only. Call light with in patient reach, will continue to monitor accordingly.
[2017-06-08 07:40] LABS: CHOLESTEROL 158 mg/dL (<200); HDL CHOLESTEROL 31 mg/dL (40-60); LDL 114 mg/dL (0-99); THYROID STIMULATING HORMONE 4.021 uIU/mL (0.358-3.74); TRIGLYCERIDES 60 mg/dL (30-150)
[2017-06-08 08:00] VITALS: BP_SYST 115; BP_SYST 126; BP_DIAS 67; BP_DIAS 71
[2017-06-08] MEDS: LEVOTHYROXINE SODIUM 25 MCG TABLET PO SCH (08:11)
[2017-06-08] MEDS: DIVALPROEX SODIUM 250 MG TABLET.DR PO SCH ×2 (08:11→21:39)
[2017-06-08] MEDS ORDERED: OLANZAPINE 2.5 MG TABLET PO SCH (09:00)
--- NOTE | 2017-06-08 10:54 | NUR ---
WOUND CARE CONSULT: PT PRESENTS WITH BLANCHABLE REDNESS TO SACRAL/BUTTOCKS AREA AND SKIN STAINING TO BUTTOCKS, RASH TO GROIN, PERINEUM AND INNER THIGHS, PRESENT ON ADMISSION. LEFT FOOT BROWN LESION NOTED. DEFER TO MD FOR FOOT SKIN LESION. ALL SKIN PROTECTION AND CARE RECOMMENDATIONS DISCUSSED WITH NURSING STAFF. ISOFLEX LOW AIRLOSS BED TO BE PLACED. WILL SEE PRN. MD IN AGREEMENT WITH PLAN OF CARE. Addendum: 06/08/17 at 1056 by BABAR TAVERAS WNDNU Amended: Links added.
[2017-06-08] MEDS: OLANZAPINE 2.5 MG TABLET PO SCH ×2 (12:57→16:20)
[2017-06-08 16:00] VITALS: BP_SYST 125; BP_SYST 128; BP_DIAS 62; BP_DIAS 70
[2017-06-08] MEDS: LEVOFLOXACIN 500 MG /D5W 100ML 500 MG in PREMIX 1 EA IV SCH (16:20)
[2017-06-08] MEDS: CLOTRIMAZOLE 1% 15 GM TUBE TP SCH (16:20)
--- NOTE | 2017-06-08 19:16 | NUR ---
ms rn closing notes All needs provided, attended, and anticipated. Patient in stable condition. Call light with in patient reach, endorsed to next shift RN to continue care.
--- NOTE | 2017-06-08 19:50 | NUR ---
MS RN NOTE: PATIENT RESTING IN BED, NO ACUTE DISTRESS NOTED. BREATHING EVEN AND UNLABORED, NO SOB NOTED. IV TO LEFT WRIST IN PLACE. SITTER AT BEDSIDE. BED LOCKED AND IN LOWEST POSITION, CALL LIGHT IN REACH. WILL CONTINUE TO MONITOR
[2017-06-08 20:00] VITALS: BP 140/71
--- NOTE | 2017-06-09 03:30 | NUR ---
MS RN NOTE: PATIENT SLEEPING IN BED, NO ACUTE DISTRESS NOTED. BREATHING EVEN AND UNLABORED, NO SOB NOTED. SITTER AT BEDSIDE. BED LOCKED AND IN LOWEST POSITION, CALL LIGHT IN REACH. WILL CONTINUE TO MONITOR.
--- NOTE | 2017-06-09 06:15 | NUR ---
MS RN NOTE: PATIENT RESTING IN BED, NO ACUTE DISTRESS NOTED. BREATHING EVEN AND UNLABORED, NO SOB NOTED. IV TO LEFT WRIST IN PLACE. SITTER AT BEDSIDE. BED LOCKED AND IN LOWEST POSITION, CALL LIGHT IN REACH. WILL ENDORSE TO DAY NURSE TO CONTINUE WITH PLAN OF CARE.
[2017-06-09] MEDS: LEVOTHYROXINE SODIUM 25 MCG TABLET PO SCH (08:32)
[2017-06-09] MEDS: CLOTRIMAZOLE 1% 15 GM TUBE TP SCH ×2 (08:33→17:16)
[2017-06-09] MEDS: OLANZAPINE 2.5 MG TABLET PO SCH ×3 (08:33→17:09)
[2017-06-09] MEDS: DIVALPROEX SODIUM 250 MG TABLET.DR PO SCH ×2 (08:33→20:18)
[2017-06-09] MEDS: LEVOFLOXACIN 500 MG /D5W 100ML 500 MG in PREMIX 1 EA IV SCH (17:08)
--- NOTE | 2017-06-09 19:34 | NUR ---
MS/RN OPENING NOTES RECEIVED REPORT FROM AM RN FOR LIZZ. PATEITN WITH SITTER REQUIRE FREQUENT REORIENTATION AND MONITORING PATIENT ATTEMPTS TO PULL IV LINE, WILL RECEHCK TEMPERATURE, KEEP PATIENT COMFORTABLE.
[2017-06-09 19:36] VITALS: BP 123/69
[2017-06-09] MEDS: ACETAMINOPHEN 325 MG TABLET PO PRN (20:18)
[2017-06-09] MEDS: ENOXAPARIN SODIUM 40 MG/0.4 ML DISP.SYRIN SQ SCH (21:47)
--- NOTE | 2017-06-10 06:34 | NUR ---
310-1 MS/RN NOTES PATIETN IN BED, REQUIRE FREQUENT ORIENTATION AND MONITORING FOR SAFETY, ON SITTER, PATIENT ATTEMPTS TO PULL IV TUBING, RESPIRATIONS EVEN AND UNLABORED, WILL EMDORSE TO AM RN FOR LIZZ.
--- NOTE | 2017-06-10 07:18 | NUR ---
PATIENT PULLED OUT THE IV. NEW 22 G IV CATHETER INSERTED IN LEFT HAND. PATIENT TOLERATED PROCEDURE WELL.
--- NOTE | 2017-06-10 07:28 | NUR ---
MS RN NOTE RECEIVED BEDSIDE REPORT ON THE PATIENT. PATIENT IS ALERT/ORIENTED X2, CONFUSED, FORGETFUL, HEART OF HEARING. PATIENT IS IN BED, BED IS LOCKED IN LOWEST POSITION, SIDE RAILS UP X3, BED ALARM IS ON. SITTER AT THE BEDSIDE. PATIENT REPORTS HEADACHE. WILL ADMINISTER ANALGESIC PRESCRIBED. CHEST IS RISING EQUALLY, BILATERAL. ALL NEEDS ARE MET. WILL CONTINUE TO ASSESS/MONITOR THROUGHOUT THE SHIFT.
[2017-06-10] MEDS: ACETAMINOPHEN 325 MG TABLET PO PRN (07:35)
[2017-06-10] MEDS: OLANZAPINE 2.5 MG TABLET PO SCH ×2 (07:35→13:28)
[2017-06-10] MEDS: LEVOTHYROXINE SODIUM 25 MCG TABLET PO SCH (07:45)
[2017-06-10 08:00] VITALS: BP 122/72
--- NOTE | 2017-06-10 08:00 | NUR ---
PATIENT COMPLAINED OF HEADACHE. TYLENOL ADMINISTERED PRESCRIBED.
[2017-06-10] MEDS: DIVALPROEX SODIUM 250 MG TABLET.DR PO SCH ×3 (08:50→17:48)
[2017-06-10] MEDS: CLOTRIMAZOLE 1% 15 GM TUBE TP SCH ×2 (08:55→17:48)
[2017-06-10] MEDS ORDERED: DIVA250T4 PO (14:41)
[2017-06-10] MEDS ORDERED: LEVO500T2 PO (14:41)
[2017-06-10] MEDS ORDERED: OLAN2.5T3 PO (14:41)
--- NOTE | 2017-06-10 15:20 | NUR ---
DISCHARGE ORDER RECEIVED. PATIENT'S PUBLIC GUARDIAN ANGELI BABB AT THE BEDSIDE. DISCUSSED PATIENT'S DISCHARGE WITH THE PUBLIC GUARDIAN. PATIENT WILL BE TRANSFERRED BY THE AMBULANCE. AMBULANCE JOURNEYMAN GLAZIER TIME SCHEDULED FOR 1929. PATIENT IS BEING TRANSFERRED TO [facility].
[2017-06-10 16:00] VITALS: BP 122/72
[2017-06-10] MEDS ORDERED: LEVOFLOXACIN (500MG) 500 MG TABLET PO SCH (17:00)
[2017-06-10] MEDS ORDERED: OLANZAPINE 2.5 MG TABLET PO SCH (17:00)
--- NOTE | 2017-06-10 19:21 | NUR ---
AMBULANCE IS PICKING UP THE PATIENT. VS WNL. IV CATHETER REMOVED WITH THE TIP INTACT. OCLUSIVE DRESSING APPLIED. SKIN PICTURES TAKEN AND PLACED IN THE CHART. ALL NEEDS ARE MET. DENIES PAIN/DISCOMFORT AT THIS TIME. ALL BELONGINGS ACCOUNTED FOR. DISCHARGE PAPERWORK GIVEN TO AMBULANCE STAFF. PATEIN IS LEAVING IN STABLE CONDITION. SKIN ASSESSMENT PICTURES TAKEN AND PLACED IN CHART. ONLY SACRAL/SCROTAL REDNESS IS PRESENT.
== END 2017-06-10 19:30 | DRG 193 ==
LOC: TELE 01:38 → MED 11:41
PROVIDERS: ADMIT Nurse Practitioner Acute Care; ATTEND Internal Medicine
DX: J15.9 Unspecified bacterial pneumonia (principal); G92 Toxic encephalopathy; F03.91 Unspecified dementia, unspecified severity, with behavioral disturbance; E44.1 Mild protein-calorie malnutrition; D63.8 Anemia in other chronic diseases classified elsewhere; F25.0 Schizoaffective disorder, bipolar type; F29 Unspecified psychosis not due to a substance or known physiological condition; R26.9 Unspecified abnormalities of gait and mobility; Z73.6 Limitation of activities due to disability; L98.9 Disorder of the skin and subcutaneous tissue, unspecified; E03.9 Hypothyroidism, unspecified
CPT/HCPCS: 36415; 71045-TC; 80048-TC; 80053-TC; 80061-TC; 83540-TC; 83735-TC; 83880; 84100-TC; 84443-TC; 84484-TC; 85025-TC; 87040-TC; 87081-TC; 93307-TC; 97110-TC; 97116-TC; 97530-TC; A4216; A4606; J1630; J1650; J1940; J1956; J7050; Z7610